=== PATIENT | female | born 1965 | race Caucasian/White ===

== ENCOUNTER 2021-04-14 20:37 | Emergency (ER) | payer OTHER ==
[~2021-04-14] VITALS: Ht 160 cm; Wt 55.8 kg
[2021-04-14] MEDS ORDERED: lupron (20:59)
[2021-04-14] MEDS ORDERED: MEDR10TA73 PO (20:59)
[2021-04-14] MEDS ORDERED: AMLO10TA59 PO (20:59)
--- NOTE | 2021-04-14 21:00 | NUR ---
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
--- NOTE | 2021-04-14 21:02 | NUR ---
Dr. Vincent on bedside for MSE.
[2021-04-14 21:15] LABS: HEMATOCRIT 31.2 % (31.2-41.9); MEAN CORPUSCULAR HEMOGLOBIN 27.6 uug (24.7-32.8); PLATELET COUNT (AUTO) 381 K/uL (179-408)
[2021-04-14 21:20] LABS: CREATININE 0.7 mg/dL (0.6-1.3); POTASSIUM 3.5 mmol/L (3.5-5.1)
--- NOTE | 2021-04-14 21:28 | NUR ---
Patient down for ultrasound.
[2021-04-14] MEDS ORDERED: KETOROLAC TROMETHAMINE 15 MG INJ IM ONE (22:30)
[2021-04-14 22:31] VITALS: BP 145/90
--- NOTE | 2021-04-14 22:31 | NUR ---
Patient discharged to home in stable condition. Written and verbal after care instructions given. Patient verbalizes understanding of instructions. Stressed follow up or return to ER for worsening s/s. All belongings with patient.
== END 2021-04-14 22:31 | disposition home or self-care (01) ==
LOC: ER 20:39
DX: S86.112A Strain of other muscle(s) and tendon(s) of posterior muscle group at lower leg level, left leg, initial encounter (principal); X58.XXXA Exposure to other specified factors, initial encounter; Y92.89 Other specified places as the place of occurrence of the external cause; M25.562 Pain in left knee; Z79.899 Other long term (current) drug therapy; F17.200 Nicotine dependence, unspecified, uncomplicated
CPT/HCPCS: 36415; 85025; A4663